=== PATIENT | male | born 1990 | race Caucasian/White ===

== ENCOUNTER 2017-07-27 04:05 | Inpatient (IN) ==
--- NOTE | 2017-07-27 04:14 | Emergency Department Note ---
Disposition Clinical Impression: Suicidal ideation, Suicide attempt DKA (diabetic ketoacidoses) Qualifiers: Diabetes mellitus type: type 1 Diabetes mellitus complication detail: without coma Qualified Code(s): E10.10 - Type 1 diabetes mellitus with ketoacidosis without coma Disposition: Still a Patient Condition: Good Referrals: NONE,PCP [Primary Care Provider] - Forms: ED Satisfaction Letter Time of Disposition: 06:04 Psych HPI - General Chief Complaint: [facility] Psych Stated Complaint: suicidal Time Seen by Provider: 07/27/17 04:07 Source: patient, EMS Mode of arrival: EMS Limitations: no limitations Nursing Notes Reviewed: Yes Vital Signs Reviewed: Yes - History of Present Illness HPI Narrative: Patient is a 27 -year-old male with past medical history of anxiety, depression , bipolar disorder. He currently takes Lexapro and Depakote. He has not missed any doses. He does have a history of a short stay in [facility] behavioral health as a teenager due to self-harm by cutting. Denies any previous suicide attempts. He presents today via EMS due to suicide attempt. He states that he was home all day, was unable to find his . He walked down the street to her brother's house to find her. He found her with another man. He became very upset, went home drink large amount of alcohol, then he took a handgun into the low. He said he was very far into the words to shoot himself in the head. However, he says that he tripped and fell and the gun discharged without hitting him. He then decided to go back to his house and called EMS. Denies any other self-harm or any other ingestions of any drugs or aspirin, Tylenol. Currently denies any chest pain, shortness breath, nausea, vomiting, fevers, diarrhea, abdominal pain. He still has suicidal ideation. Denies any homicidal ideation, visual or auditory hallucinations. - Related Data Home Medications Medication Instructions Recorded Confirmed Escitalopram [Lexapro] 10 mg PO DAILY 05/06/16 11/21/16 Insulin LISPRO [Humalog] 1 unit SQ TID PRN 05/06/16 11/21/16 Divalproex (12 HR) [Depakote (12 500 mg PO BID 11/21/16 11/21/16 HR)] Insulin Glargine,Hum.rec.anlog 60 unit SQ DAILY 11/21/16 11/21/16 [Lantus Solostar] Basagljodie Murdockpen U-100 07/10/17 Lisinopril 07/10/17 Previous Rx's Medication Instructions Recorded Brompheniramine/Pseudoephed/Dm 10 ml PO Q4H PRN #200 ml 07/10/17 [Bromfed Dm Cough Syrup] Allergies Allergy/AdvReac Type Severity Reaction Status Date / Time No Known Allergies Allergy Verified 07/10/17 16:53 All systems ED: reviewed and negative except as stated. Constitutional: Denies: fever Cardiovascular: Denies: chest pain Respiratory: Denies: cough, dyspnea Gastrointestinal: Denies: abdominal pain, nausea, vomiting, diarrhea Genitourinary: Denies: urgency, dysuria Neurological: Denies: weakness, numbness, paresthesias Past Medical History - Past Medical History Attestation: Yes The following information was validated with the patient. Source: patient Medical history: Reports: diabetes, hypertension, other Surgical history: Reports: other Psychiatric history: Reports: bipolar, depression - Social History Smoking Status: Current every day smoker Smokeless Tobacco Status: No Alcohol use: Reports: occasionally Drug use: Reports: none Physical Exam - General Limitations: no limitations General appearance: alert, other (appears upset, eyes swollen from crying. IN no acute distress. ) - Head Head exam: atraumatic, normocephalic, normal inspection - Eye Eye exam: Present: PERRL, EOMI, other (edema of bilateral eyes due to crying) - ENT ENT exam: normal exam, normal oropharynx, mucous membranes moist - Neck Neck exam: Present: normal inspection, full ROM, trachea midline. Absent: tenderness - Chest Chest inspection: Present: normal inspection, symmetric chest wall rise - Respiratory Respiratory exam: Present: normal lung sounds bilaterally - Cardiovascular Cardiovascular exam: Present: regular rate, normal rhythm, normal heart sounds - Abdominal Exam Abdominal exam: Present: soft, Non-Tender. Absent: tenderness, distention, guarding, rebound, rigidity - Extremities Exam Extremities exam: Present: normal inspection, full ROM. Absent: tenderness, pedal edema - Neurological Exam Neurological exam: Present: alert, oriented X3 - Psychiatric Psychiatric exam: Present: depressed, suicidal ideation - Skin Skin exam: Present: warm, dry, intact, normal color Course Course Narrative: Patient vitals were within normal limits on my exam. Physical exam shows a patient who appears depressed, has swollen eyes from crying. Otherwise in no acute distress. Heart regular rate and rhythm, lungs clear to auscultation, abdomen soft and benign, all extremities within normal limits. Due to suicide attempt, we will obtain medical clearance labs and then have behavioral health team evaluate. [place] slip has been signed and is on the chart. 17:49 patient's glucose was in the 500s. He does have a history of diabetes and takes Lantus 50 units at night and then sliding-scale insulin throughout the day. He states that he took his insulin last night prior to bed and then had one sliding-scale dose today around 2 PM. Due to elevated blood glucose level, I ordered a VBG, beta hydroxybutyrate. Patient had elevated ketones in the urine, greater than 2 hydroxybutyrate, pH is 7.28. Patient meets DKA criteria. Anion gap is elevated at 16. We will give the patient normal saline fluid boluses, fluids with potassium, and will start on insulin drip. We will admit to hospitalist for further care. Patient will need to have a behavioral health consult while on the floor. [place] slip remains signed and on the chart. Sitter has been ordered. Vital Signs Temperature 98.5 F 07/27/17 04:07 Pulse Rate 104 07/27/17 04:07 Respiratory Rate 20 07/27/17 04:07 Blood Pressure 138/78 07/27/17 04:07 O2 Sat by Pulse Oximetry 98 07/27/17 04:07 Temperature 98.5 F 07/27/17 04:07 Pulse Rate 104 07/27/17 04:07 Respiratory Rate 20 07/27/17 04:07 Blood Pressure 138/78 07/27/17 04:07 O2 Sat by Pulse Oximetry 98 07/27/17 04:07 Oxygen Delivery Oxygen Delivery Room Air Psych - MDM Narrative Medical decision making narrative: patient's glucose was in the 500s. He does have a history of diabetes and takes Lantus 50 units at night and then sliding-scale insulin throughout the day. He states that he took his insulin last night prior to bed and then had one sliding-scale dose today around 2 PM. Due to elevated blood glucose level, I ordered a VBG, beta hydroxybutyrate. Patient had elevated ketones in the urine, greater than 2 hydroxybutyrate, pH is 7.28. Patient meets DKA criteria. Anion gap is elevated at 16. We will give the patient normal saline fluid boluses, fluids with potassium, and will start on insulin drip. We will admit to hospitalist for further care. Patient will need to have a behavioral health consult while on the floor. [place] slip remains signed and on the chart. Sitter has been ordered. - Lab Data Lab results reviewed: Yes I reviewed the patient's lab results. Result diagrams: 07/27/17 04:26 07/27/17 04:26 Lab Results 07/27/17 07/27/17 07/27/17 Range/Units 04:15 04:15 04:26 WBC 10.0 (4.3-11.1) K/mcL RBC 4.58 (4.19-5.50) M/mcL Hgb 14.2 (12.9-16.9) g/dL Hct 43.4 (37.5-50.1) % MCV 94.8 (83.0-100.0) fL MCH 31.0 (28.0-33.3) pg MCHC 32.7 (31.6-35.5) g/dL RDW 12.1 (11.5-14.5) % Plt Count 215 (140-400) K/mcL MPV 11.2 (9.4-12.4) fL Immature Gran % 0.3 (0-4) % Seg Neutrophils % 82.9 % Lymphocytes % 11.9 % Monocytes % 4.4 % Eosinophils % 0.1 % Basophils % 0.4 % Neutrophils # 8.3 (1.6-8.9) K/mcL Lymphocytes # 1.2 (0.6-4.6) K/mcL Monocytes # 0.4 (0.0-1.3) K/mcL Eosinophils # 0.0 (0.0-0.6) K/mcL Basophils # 0.0 (0.0-0.2) K/mcL VBG pH (7.32-7.42) pH Units VBG pCO2 (41-51) mmHg VBG pO2 (25-50) mmHg VBG HCO3 (21-27) mEq/L Sodium (136-145) mEq/L Potassium (3.5-4.5) mEq/L Chloride (98-109) mEq/L Carbon Dioxide (19-29) mEq/L BUN (8-26) mg/dL Creatinine (0.72-1.25) mg/dL Est GFR ( Amer) (> 60) Est GFR (Non-Af Amer) (> 60) BUN/Creatinine Ratio (6-26) Glucose (70-99) mg/dL Calculated Osmolality (280-300) Calcium (8.6-10.8) mg/dL Beta-Hydroxybutyric Acd (0.02-0.27) mmol/L Urine Color Yellow (Yellow) Urine Clarity Clear (Clear) Urine pH 6.5 (5.0-8.0) pH Units Ur Specific [place] > 1.030 H (1.010-1.025) Urine Protein Negative (Neg-Trace) mg/dL Urine Glucose (UA) >=1000 H (Normal) mg/dL Urine Ketones 15 H (Negative) mg/dL Urine Blood Negative (Negative) Urine Nitrite Negative (Negative) Urine Bilirubin Negative (Negative) Urine Urobilinogen Normal (Normal) mg/dL Ur Leukocyte Esterase Negative (Negative) Salicylates (15.0-30.0) mg/dL Urine Opiates Screen Negative (Kbakyp=945) ng/mL Acetaminophen (10-30) mcg/mL Ur Barbiturates Screen Negative (Uoauij=328) ng/mL Ur Phencyclidine Scrn Negative (Cutoff=25) ng/mL Ur Amphetamines Screen Negative (Gfjgvx=3004) ng/mL U Benzodiazepines Scrn Negative (Kokbne=744) ng/mL Urine Cocaine Screen Negative (Cutoff= 300) ng/mL U Marijuana (THC) Screen Negative (Cutoff = 50) ng/mL Ethyl Alcohol (0-10) mg/dL 07/27/17 07/27/17 07/27/17 Range/Units 04:26 05:11 05:24 WBC (4.3-11.1) K/mcL RBC (4.19-5.50) M/mcL Hgb (12.9-16.9) g/dL Hct (37.5-50.1) % MCV (83.0-100.0) fL MCH (28.0-33.3) pg MCHC (31.6-35.5) g/dL RDW (11.5-14.5) % Plt Count (140-400) K/mcL MPV (9.4-12.4) fL Immature Gran % (0-4) % Seg Neutrophils % % Lymphocytes % % Monocytes % % Eosinophils % % Basophils % % Neutrophils # (1.6-8.9) K/mcL Lymphocytes # (0.6-4.6) K/mcL Monocytes # (0.0-1.3) K/mcL Eosinophils # (0.0-0.6) K/mcL Basophils # (0.0-0.2) K/mcL VBG pH 7.28 L (7.32-7.42) pH Units VBG pCO2 45 (41-51) mmHg VBG pO2 52 H (25-50) mmHg VBG HCO3 21 (21-27) mEq/L Sodium 136 (136-145) mEq/L Potassium 4.3 (3.5-4.5) mEq/L Chloride 102 (98-109) mEq/L Carbon Dioxide 18 L (19-29) mEq/L BUN 13 (8-26) mg/dL Creatinine 1.08 (0.72-1.25) mg/dL Est GFR ( Amer) > 60 (> 60) Est GFR (Non-Af Amer) > 60 (> 60) BUN/Creatinine Ratio 12 (6-26) Glucose 529 H* (70-99) mg/dL Calculated Osmolality 306 H (280-300) Calcium 8.5 L (8.6-10.8) mg/dL Beta-Hydroxybutyric Acd > 2.00 H (0.02-0.27) mmol/L Urine Color (Yellow) Urine Clarity (Clear) Urine pH (5.0-8.0) pH Units Ur Specific [place] (1.010-1.025) Urine Protein (Neg-Trace) mg/dL Urine Glucose (UA) (Normal) mg/dL Urine Ketones (Negative) mg/dL Urine Blood (Negative) Urine Nitrite (Negative) Urine Bilirubin (Negative) Urine Urobilinogen (Normal) mg/dL Ur Leukocyte Esterase (Negative) Salicylates < 5.0 L (15.0-30.0) mg/dL Urine Opiates Screen (Mfuyqh=716) ng/mL Acetaminophen < 1.0 L (10-30) mcg/mL Ur Barbiturates Screen (Ukcqgn=821) ng/mL Ur Phencyclidine Scrn (Cutoff=25) ng/mL Ur Amphetamines Screen (Sxmqhq=3987) ng/mL U Benzodiazepines Scrn (Piknhu=395) ng/mL Urine Cocaine Screen (Cutoff= 300) ng/mL U Marijuana (THC) Screen (Cutoff = 50) ng/mL Ethyl Alcohol 130 H (0-10) mg/dL Psychiatric Medical Clearance - Medical Clearance Checklist Medical History: Suicidal ideation (Acute) Suicide attempt (Acute) Abscess of skin or subcutaneous tissue (Inactive) Bronchitis (Inactive) Bronchitis (Inactive) Bronchitis (Inactive) Chest wall pain (Inactive) Elevated glucose (Inactive) Encounter for medication refill (Inactive) Ketonuria (Inactive) Lumbar strain (Inactive) Pleural effusion (Inactive) Upper respiratory infection (Inactive) Urinary frequency (Inactive) No Social History Section defined Current Vitals: Last Vital Signs Temp 98.5 F 07/27/17 04:07 Pulse 104 07/27/17 04:07 Resp 20 07/27/17 04:07 BP 138/78 07/27/17 04:07 Pulse Ox 98 07/27/17 04:07 Psychiatric Lab Panel: Drug Levels and Toxicity 07/27/17 07/27/17 04:15 04:26 Urine Opiates Screen Negative Acetaminophen < 1.0 L Ur Barbiturates Screen Negative Ur Phencyclidine Scrn Negative Ur Amphetamines Screen Negative U Benzodiazepines Scrn Negative Urine Cocaine Screen Negative U Marijuana (THC) Screen Negative Ethyl Alcohol 130 H Abnormal Labs: Abnormal lab results VBG pH 7.28 pH Units (7.32-7.42) L 07/27/17 05:24 VBG pO2 52 mmHg (25-50) H 07/27/17 05:24 Carbon Dioxide 18 mEq/L (19-29) L 07/27/17 04:26 Glucose 529 mg/dL (70-99) H* 07/27/17 04:26 Calculated Osmolality 306 (280-300) H 07/27/17 04:26 Calcium 8.5 mg/dL (8.6-10.8) L 07/27/17 04:26 Beta-Hydroxybutyric Acd > 2.00 mmol/L (0.02-0.27) H 07/27/17 05:11 Ur Specific [place] > 1.030 (1.010-1.025) H 07/27/17 04:15 Urine Glucose (UA) >=1000 mg/dL (Normal) H 07/27/17 04:15 Urine Ketones 15 mg/dL (Negative) H 07/27/17 04:15 Salicylates < 5.0 mg/dL (15.0-30.0) L 07/27/17 04:26 Acetaminophen < 1.0 mcg/mL (10-30) L 07/27/17 04:26 Ethyl Alcohol 130 mg/dL (0-10) H 07/27/17 04:26 Statement of Medical Clearance: I have evaluated the patient, reviewed diagnostic information, and certify that the patient's medical condition is sufficiently stable that transfer to the psychiatric unit does not pose a significant risk of deterioration. S.BShaunna - Matthew Situation: Demographics, MOA Background: Presenting Complaint, Relevant PMH, Meds, & Allergies Assessment: Vital Signs, Course and respsone to treatment, Exam Concerns, Patient/Family Expectation, Pertinant Lab Results, Outstanding Labs Recommendation: Barrier(s) to disposition, Recommendation based on pending studies, treatments, or consults SDiBShaunna Report Given to: Dr. Shena Castro Repor Time: 06:04 Attestation Statement - Attestation Attestation: I examined this patient and my medical decision-making was reviewed with the Resident Physician. I agree with the documented findings, disposition and treatment plan as described except to the extent set forth below. Patient to ED suicidal thoughts. Patient was planning to go in the low and shoot himself. He is a type I diabetic. On exam he is tearful. Heart regular lungs clear. Plan. Patient's blood sugars over 500. Anion gap 16 and acidotic at 7.2. Patient is in DKA. Fluids and insulin drip. We will admit.
[2017-07-27 04:35] LABS: Basophils % 0.4 %; Eosinophils % 0.1 %; Hematocrit 43.4 % (37.5-50.1); Hemoglobin 14.2 g/dL (12.9-16.9); Immature Granulocytes % 0.3 % (0-4); Lymphocytes # 1.2 K/mcL (0.6-4.6); Lymphocytes % 11.9 %; Mean Corpuscular HGB Conc 32.7 g/dL (31.6-35.5); Mean Corpuscular Volume 94.8 fL (83.0-100.0); Mean Platelet Volume 11.2 fL (9.4-12.4); Monocytes # 0.4 K/mcL (0.0-1.3); Monocytes % 4.4 %; Neutrophils # 8.3 K/mcL (1.6-8.9); Platelet Count 215 K/mcL (140-400); Red Blood Count 4.58 M/mcL (4.19-5.50); Red Cell Distribution Width 12.1 % (11.5-14.5); Segmented Neutrophils % 82.9 %
[2017-07-27 04:39] LABS: Bilirubin,Urine Negative (Negative); Blood,Urine Negative (Negative); Clarity,Urine Clear (Clear); Color,Urine Yellow (Yellow); Glucose,Urine (UA) >=1000 mg/dL (Normal); Ketones,Urine 15 mg/dL (Negative); Leukocyte Esterase,Urine Negative (Negative); Nitrite,Urine Negative (Negative); PH,Urine 6.5 pH Units (5.0-8.0); Protein,Urine Negative (Neg-Trace); Specific Gravity,Urine > 1.030 (1.010-1.025); Urobilinogen,Urine Normal (Normal)
[2017-07-27 04:41] LABS: Amphetamine Screen,Urine Negative ng/mL (Cutoff=1000); Barbiturate Screen,Urine Negative ng/mL (Cutoff=200); Benzodiazepines Screen,Urine Negative ng/mL (Cutoff=200); Cannabinoid Screen,Urine Negative ng/mL (Cutoff = 50); Cocaine Screen,Urine Negative ng/mL (Cutoff= 300); Opiate Screen,Urine Negative ng/mL (Cutoff=300); Phencyclidine Screen,Urine Negative ng/mL (Cutoff=25)
[2017-07-27 04:49] LABS: BUN/Creatinine Ratio 12 (6-26); Blood Urea Nitrogen 13 mg/dL (8-26); Calcium 8.5 mg/dL (8.6-10.8); Carbon Dioxide 18 mEq/L (19-29); Chloride 102 mEq/L (98-109); Ethanol 130 mg/dL (0-10); Osmolality,Calculated 306 (280-300); Potassium 4.3 mEq/L (3.5-4.5); Sodium 136 mEq/L (136-145); eGFR For African Americans > 60 (> 60); eGFR For Non-African Americans > 60 (> 60)
[2017-07-27 04:50] LABS: Acetaminophen < 1.0 mcg/mL (10-30); Salicylate < 5.0 mg/dL (15.0-30.0)
[2017-07-27 04:52] LABS: Glucose 529 mg/dL (70-99)
[2017-07-27 05:27] LABS: VBG HCO3 21 mEq/L (21-27); VBG PCO2 45 mmHg (41-51); VBG PH 7.28 pH Units (7.32-7.42); VBG PO2 52 mmHg (25-50)
[2017-07-27] MEDS ORDERED: 0.9 % Sodium Chloride 1,000 ML IVC SCH (05:30)
[2017-07-27] MEDS ORDERED: 0.45 % Sodium Chloride w/KCl 20 MEQ/1,000 ML MLS IVC SCH (05:30)
[2017-07-27] MEDS ORDERED: Insulin Human Regular 100 UNIT in 0.9 % Sodium Chloride 100 ML IVC SCH (05:30)
[2017-07-27] MEDS ORDERED: Insulin DETEMIR 100 UNIT/ML X5UNITS SQ ONE (06:15)
[2017-07-27] MEDS ORDERED: Naloxone 0.4 MG/ML INJ IVP PRN (06:16)
--- NOTE | 2017-07-27 06:23 | Internal Med History&Physical ---
Date of Encounter: 07/27/17 Time of Encounter: 06:18 Assessment and Plan (1) Suicide attempt Current visit: Yes Status: Acute psych eval sitter, suicide precautions (2) Bipolar 1 disorder, depressed Current visit: Yes Status: Acute psych eval sitter, suicide precautions (3) Depression Current visit: Yes Status: Acute psych eval sitter, suicide precautions Qualifiers: Depression Type: reactive depression Qualified Code(s): F32.9 - Major depressive disorder, single episode, unspecified (4) DKA (diabetic ketoacidoses) Current visit: Yes Status: Acute mild DKA insulin gtt in the ED IVF anticipate transition to ISS and PO intake in the morning if all goes well Qualifiers: Diabetes mellitus type: type 1 Diabetes mellitus complication detail: without coma Qualified Code(s): E10.10 - Type 1 diabetes mellitus with ketoacidosis without coma Internal Medicine - H&P: HPI Chief complaint: Suicidal attempt History of present illness: Mr. Avila is a 27 year old male who self committed himself after a suicide attempt. He found out that his had an affair and started to drink heavily last evening. He decided to commit suicide by taking his gun with him into the low but somehow, tripped and misfired a round. Thankfully, there was only 1 round in the chamber and he ran out of ammunition. He later came around and decided to self admit to the ED for help. He has a hx of depression, bipolar disorder since childhood. His mental health has been managed by PCP. He described himself as a "cutter" when he was a high school and his mother reported that he had to be committed to [facility] mental health then. In terms of his medical issues, he had been a DMI since 12 years old. He uses 60 lantus qHS and ISS during the day. With the emotional turmoil he developed last evening, he was not able to be compliant with his insulin, causing elevated blood sugars Past Med Surg Social Fam HX - Past Medical History Medical history: diabetes, hypertension, other Psychiatric history: bipolar, depression - Past Surgical History Surgical History: other - Social History Smoking Status: Current every day smoker Smokeless Tobacco Status: No Alcohol use: occasionally Drug use: none Internal Medicine - H&P: Meds Escitalopram [Lexapro] 10 mg PO DAILY 09/26/16 [History] Insulin LISPRO [Humalog] 1 unit SQ TID PRN 05/06/16 [History] Divalproex (12 HR) [Depakote (12 HR)] 500 mg PO BID 11/21/16 [History] Insulin Glargine,Hum.rec.anlog [Lantus Solostar] 60 unit SQ DAILY 11/21/16 [ History] Basaglar Kwikpen U-100 07/10/17 [History] Brompheniramine/Pseudoephed/Dm [Bromfed Dm Cough Syrup] 10 ml PO Q4H PRN #200 ml 07/10/17 [Rx] Lisinopril 07/10/17 [History] 3 Allergy/AdvReac Type Severity Reaction Status Date / Time No Known Allergies Allergy Verified 07/10/17 16:53 All Systems PM: A 10-system review of systems was performed and is negative for pertinent findings except as documented above in the HPI. Review of systems: ROS 14 point review of systems reviewed as best as possible given presentation. Pertinent positive or negative as per HPI or otherwise reviewed as negative - Constitutional Vitals: Temp Pulse Resp BP Pulse Ox 98.5 F 104 20 138/78 98 07/27/17 04:07 07/27/17 04:07 07/27/17 04:07 07/27/17 04:07 07/27/17 04:07 Exam: General - AAO x 3 Psych - Appears down Eyes - JOSEPH. Eye lids intact. No scleral icterus Heart - Sinus. RRR. S1 and S2 present. No added HS/murmurs appreciated. No elevated JVD appreciated. Lung - Adequate air entry b/l, No crackles/wheezes appreciated GI - Soft, non-tender. No hepatosplenomegaly/ascites. BS+ - No CVA/suprapubic tenderness or palpable bladder distension Skin - Tattoos present. No rash/petechiae/ecchymosis. Warm extremities MSK - Joints with normal ROM. No joint swellings Internal Med - H&P Results - Labs CBC & Chem 7: 07/27/17 04:26 07/27/17 04:26
[2017-07-27] MEDS ORDERED: *HR* Dextrose 50 % in Water (Syg) 50 ML SYRINGE IVP PRN (06:29)
[2017-07-27] MEDS ORDERED: D5% in Water 1,000 ML IVC PRN (06:29)
[2017-07-27] MEDS ORDERED: Dextrose Gel 15 GM PO PRN ×2 (06:29)
[2017-07-27] MEDS ORDERED: Insulin LISPRO 300 UNITS/3 ML VIAL SQ SCH ×3 (07:30→21:00)
[2017-07-27] MEDS: Divalproex (12 HR) 500 MG TABLET PO SCH ×2 (07:48→20:03)
[2017-07-27 09:22] LABS: BUN/Creatinine Ratio 12 (6-26); Blood Urea Nitrogen 10 mg/dL (8-26); Calcium 7.9 mg/dL (8.6-10.8); Carbon Dioxide 19 mEq/L (19-29); Chloride 107 mEq/L (98-109); Glucose 301 mg/dL (70-99); Osmolality,Calculated 296 (280-300); Sodium 138 mEq/L (136-145); eGFR For African Americans > 60 (> 60); eGFR For Non-African Americans > 60 (> 60)
[2017-07-27 09:26] LABS: Potassium 3.2 mEq/L (3.5-4.5)
--- NOTE | 2017-07-27 10:45 | Event Note ---
Date of Encounter: 07/27/17 Time of Encounter: 10:35 Patient is a 27y/o male with history of Type I DM admitted s/p suicide attempt and DKA. Patient seen and examined at bedside. Resting in bed and denies any discomfort. Denies any thoughts of hurting himself and is remorseful of his actions. DKA resolved. Restarted home dose of insulin along with sliding scare insulin algorithm Monitor FS and BG ADA diet continue bedside sitter awaiting psychiatry evaluation pt medically stable to be transferred to psych service if inpatient psych evaluation is needed
[2017-07-27] MEDS: Insulin LISPRO 300 UNITS/3 ML VIAL SQ SCH ×2 (11:20→16:36)
--- NOTE | 2017-07-27 12:46 | Consult Note ---
Date of Encounter: 07/27/17 Time of Encounter: 12:41 Assessment & Recommendation (1) Bipolar 1 disorder, depressed Current visit: Yes Status: Acute Assessment & Recommendation: Continue Lexapro and Depakote for now. Recommend inpatient psychiatry admission once DKA resolved and client medically stable. He is aware this is the recommendation and is agreeable. Maintain sitter. Will need to ensure guns removed from home and no further access to weapons. Sees PCP for meds but needs referred to a counselor and outpatient psychiatrist. History of Present Illness Requesting Physician: Beata Morales MD Reason for consult: suicidal ideation History of present illness: Mr. Avila is a 27 year old male with past diagnoses of depression, anxiety, and bipolar disorder. Had been doing well on regimen of Lexapro and Depakote but found out was having an affair. Took a gun into the low behind his house with plan to shoot himself. Claims the one round he had fired accidentally so he decided to seek help instead. Was drinking heavily and not taking insulin for his Diabetes so at the time of presentation he was in DKA. Being managed medically at this time. Today client reports he is feeling better. SI has lessened but still present. Discussed admission to inpatient psych and he is agreeable. One prior hospitalization at [facility] as a minor. Saw a psychiatrist for a year and a half following this admission but PCP manages meds now. Denies any other health problems except HTN. Denies substance abuse issues. Tox screen negative. CC: Beata Morales MD Past Med Surg Social Fam HX - Past Medical History Medical history: diabetes, hypertension, other - Past Psychiatric History Psychiatric history: Reports: anxiety, bipolar, depression, previous psychiatric hospitalization Family psychiatric history: Unknown Family History of Suicide: Unknown - Past Surgical History Surgical History: other - Social History Smoking Status: Current every day smoker Smokeless Tobacco Status: No Alcohol use: occasionally Drug use: none Medications & Allergies Escitalopram [Lexapro] 10 mg PO DAILY 05/06/16 [History] Insulin LISPRO [Humalog] 1 unit SQ TID PRN 05/06/16 [History] Divalproex (12 HR) [Depakote (12 HR)] 500 mg PO BID 11/21/16 [History] Insulin Glargine,Hum.rec.anlog [Lantus Solostar] 60 unit SQ DAILY 11/21/16 [ History] Consueloagljodie Elizabeth U-100 07/10/17 [History] Brompheniramine/Pseudoephed/Dm [Bromfed Dm Cough Syrup] 10 ml PO Q4H PRN #200 ml 07/10/17 [Rx] Lisinopril 07/10/17 [History] 3 Allergy/AdvReac Type Severity Reaction Status Date / Time No Known Allergies Allergy Verified 07/10/17 16:53 Review of Systems Constitutional: Denies: fever, chills, weakness, weight change Eyes: Denies: eye pain, vision change Ears, Nose, Throat: Denies: ear pain, throat pain, dental pain, hearing loss, congestion Cardiovascular: Denies: chest pain, palpitations, dyspnea on exertion Respiratory: Denies: cough, dyspnea, wheezes Gastrointestinal: Denies: abdominal pain, nausea, vomiting, diarrhea, constipation Genitourinary male: Denies: urgency, dysuria, frequency, genital lesions Genitourinary female: Denies: urgency, dysuria, frequency, abnormal menses, dyspareunia Musculoskeletal: Denies: joint swelling, joint pain Integumentary: Denies: rash, lesions, pruritus Neurological: Denies: headache, weakness, numbness, memory loss Psychiatric: Reports: depression, anxiety, suicidal ideation Endocrine: Reports: other Mental Status Exam Patient orientation: Yes Person, Yes Time, Yes Place Level of alertness: Alert Patient appearance: Disheveled Behavior: calm, cooperative Psychomotor activity: Normal Eye contact: Maintains Eye Contact Mood description: Depressed Affect description: congruent with mood Speech pattern: Normal rate, Normal rhythm, Normal tone Speech volume: Normal Thought process: Linear Thought content: Yes Suicidal ideation, No Homicidal ideation, No Overt delusions Perceptual disturbances: No Auditory hallucinations, No Visual hallucinations Attention span: Capable of Focused Attention Memory description: Grossly Intact Patient reliability: Reliable Historian Intelligence estimate: Average Judgment: Limited Insight: Partial Results - Vital Signs Vital signs: Temp Pulse Resp BP Pulse Ox 98.0 F 101 20 127/76 98 07/27/17 11:17 07/27/17 11:20 07/27/17 11:17 07/27/17 11:17 07/27/17 11:17 - Labs Labs: Laboratory Last Values WBC 10.0 K/mcL (4.3-11.1) 07/27/17 04:26 RBC 4.58 M/mcL (4.19-5.50) 07/27/17 04:26 Hgb 14.2 g/dL (12.9-16.9) 07/27/17 04:26 Hct 43.4 % (37.5-50.1) 07/27/17 04:26 MCV 94.8 fL (83.0-100.0) 07/27/17 04:26 MCH 31.0 pg (28.0-33.3) 07/27/17 04:26 MCHC 32.7 g/dL (31.6-35.5) 07/27/17 04:26 RDW 12.1 % (11.5-14.5) 07/27/17 04:26 Plt Count 215 K/mcL (140-400) 07/27/17 04:26 MPV 11.2 fL (9.4-12.4) 07/27/17 04:26 Immature Gran % 0.3 % (0-4) 07/27/17 04:26 Seg Neutrophils % 82.9 % 07/27/17 04:26 Lymphocytes % 11.9 % 07/27/17 04:26 Monocytes % 4.4 % 07/27/17 04:26 Eosinophils % 0.1 % 07/27/17 04:26 Basophils % 0.4 % 07/27/17 04:26 Neutrophils # 8.3 K/mcL (1.6-8.9) 07/27/17 04:26 Lymphocytes # 1.2 K/mcL (0.6-4.6) 07/27/17 04:26 Monocytes # 0.4 K/mcL (0.0-1.3) 07/27/17 04:26 Eosinophils # 0.0 K/mcL (0.0-0.6) 07/27/17 04:26 Basophils # 0.0 K/mcL (0.0-0.2) 07/27/17 04:26 VBG pH 7.28 pH Units (7.32-7.42) L 07/27/17 05:24 VBG pCO2 45 mmHg (41-51) 07/27/17 05:24 VBG pO2 52 mmHg (25-50) H 07/27/17 05:24 VBG HCO3 21 mEq/L (21-27) 07/27/17 05:24 Sodium 138 mEq/L (136-145) 07/27/17 09:03 Potassium 3.2 mEq/L (3.5-4.5) L D 07/27/17 09:03 Chloride 107 mEq/L (98-109) 07/27/17 09:03 Carbon Dioxide 19 mEq/L (19-29) 07/27/17 09:03 BUN 10 mg/dL (8-26) 07/27/17 09:03 Creatinine 0.82 mg/dL (0.72-1.25) 07/27/17 09:03 Est GFR ( Amer) > 60 (> 60) 07/27/17 09:03 Est GFR (Non-Af Amer) > 60 (> 60) 07/27/17 09:03 BUN/Creatinine Ratio 12 (6-26) 07/27/17 09:03 Glucose 301 mg/dL (70-99) H 07/27/17 09:03 POC Glucose 358 (58-89) H 07/27/17 06:46 Calculated Osmolality 296 (280-300) 07/27/17 09:03 Calcium 7.9 mg/dL (8.6-10.8) L 07/27/17 09:03 Beta-Hydroxybutyric Acd > 2.00 mmol/L (0.02-0.27) H 07/27/17 05:11 Urine Color Yellow (Yellow) 07/27/17 04:15 Urine Clarity Clear (Clear) 07/27/17 04:15 Urine pH 6.5 pH Units (5.0-8.0) 07/27/17 04:15 Ur Specific [place] > 1.030 (1.010-1.025) H 07/27/17 04:15 Urine Protein Negative mg/dL (Neg-Trace) 07/27/17 04:15 Urine Glucose (UA) >=1000 mg/dL (Normal) H 07/27/17 04:15 Urine Ketones 15 mg/dL (Negative) H 07/27/17 04:15 Urine Blood Negative (Negative) 07/27/17 04:15 Urine Nitrite Negative (Negative) 07/27/17 04:15 Urine Bilirubin Negative (Negative) 07/27/17 04:15 Urine Urobilinogen Normal mg/dL (Normal) 07/27/17 04:15 Ur Leukocyte Esterase Negative (Negative) 07/27/17 04:15 Salicylates < 5.0 mg/dL (15.0-30.0) L 07/27/17 04:26 Urine Opiates Screen Negative ng/mL (Dizcbi=724) 07/27/17 04:15 Acetaminophen < 1.0 mcg/mL (10-30) L 07/27/17 04:26 Ur Barbiturates Screen Negative ng/mL (Puuzto=464) 07/27/17 04:15 Ur Phencyclidine Scrn Negative ng/mL (Cutoff=25) 07/27/17 04:15 Ur Amphetamines Screen Negative ng/mL (Djgzfd=9799) 07/27/17 04:15 U Benzodiazepines Scrn Negative ng/mL (Awajcl=102) 07/27/17 04:15 Urine Cocaine Screen Negative ng/mL (Cutoff= 300) 07/27/17 04:15 U Marijuana (THC) Screen Negative ng/mL (Cutoff = 50) 07/27/17 04:15 Ethyl Alcohol 130 mg/dL (0-10) H 07/27/17 04:26 Consult Discharge Plan - Plan Referrals: Frederic Peña [facility] [Advanced Practice Nurse] - (WEB REQUEST SENT 07/27/17. OFFICE WILL PT WITH FOLLOW UP APPOINTMENT.)
[2017-07-27] MEDS: *HR* Dextrose 50 % in Water (Syg) 50 ML SYRINGE IVP PRN ×4 (12:59→21:34)
[2017-07-28 05:58] LABS: Basophils % 0.4 %; Eosinophils # 0.1 K/mcL (0.0-0.6); Eosinophils % 0.6 %; Hematocrit 37.3 % (37.5-50.1); Immature Granulocytes % 0.3 % (0-4); Lymphocytes % 37.5 %; Mean Corpuscular Hemoglobin 31.3 pg (28.0-33.3); Mean Corpuscular Volume 94.9 fL (83.0-100.0); Mean Platelet Volume 11.3 fL (9.4-12.4); Monocytes # 0.5 K/mcL (0.0-1.3); Monocytes % 6.2 %; Neutrophils # 4.3 K/mcL (1.6-8.9); Platelet Count 182 K/mcL (140-400); Red Blood Count 3.93 M/mcL (4.19-5.50); Red Cell Distribution Width 12.5 % (11.5-14.5)
[2017-07-28] MEDS ORDERED: *HR* Enoxaparin 30 MG/0.3 ML SYRINGE SQ SCH (06:00)
[2017-07-28 06:17] LABS: Hemoglobin 12.3 g/dL (12.9-16.9)
[2017-07-28 06:18] LABS: BUN/Creatinine Ratio 13 (6-26); Blood Urea Nitrogen 9 mg/dL (8-26); Calcium 7.9 mg/dL (8.6-10.8); Carbon Dioxide 22 mEq/L (19-29); Chloride 110 mEq/L (98-109); Glucose 238 mg/dL (70-99); Magnesium 1.8 mg/dL (1.6-2.6); Osmolality,Calculated 294 (280-300); Phosphorous 2.8 mg/dL (2.3-4.7); Potassium 4.1 mEq/L (3.5-4.5); Sodium 139 mEq/L (136-145); eGFR For African Americans > 60 (> 60); eGFR For Non-African Americans > 60 (> 60)
[2017-07-28] MEDS: Divalproex (12 HR) 500 MG TABLET PO SCH (07:56)
[2017-07-28] MEDS: Insulin LISPRO 300 UNITS/3 ML VIAL SQ SCH ×2 (08:00→12:17)
[2017-07-28] MEDS ORDERED: Insulin DETEMIR 100 UNIT/ML X5UNITS SQ SCH ×2 (09:00)
--- NOTE | 2017-07-28 09:40 | Transfer Summary ---
Date of Encounter: 07/28/17 Time of Encounter: 09:36 Transfer Discharge Sum: Diag - Discharge Diagnosis (1) Suicidal ideation Status: Acute (2) Suicide attempt Status: Acute (3) DKA (diabetic ketoacidoses) Status: Resolved (4) Bipolar 1 disorder, depressed Status: Acute (5) Depression Status: Acute Transfer Discharge Sum: Med - Medications Active and Home Medications: Home Medications Insulin LISPRO [Humalog] 0 unit SQ TID PRN 05/06/16 [History Confirmed 07/27/17] Insulin Glargine,Hum.rec.anlog [Lantus Solostar] 60 unit SQ DAILY 11/21/16 [ History Confirmed 07/27/17] Lisinopril [Zestril] 5 mg PO DAILY 07/10/17 [History Confirmed 07/27/17] Divalproex (12 HR) [Depakote (12 HR)] 250 mg PO BID 07/27/17 [History Confirmed 07/27/17] Escitalopram [Lexapro] 20 mg PO DAILY 07/27/17 [History Confirmed 07/27/17] Active Medications Dextrose/Water (Dextrose 50% (Syg)) 25 ml IVP Q15MIN PRN PRN Reason: Hypoglycemia Stop: 01/26/18 05:31 Last Admin: 07/27/17 21:34 Dose: 25 ml Dextrose/Water (Dextrose 50% (Syg)) 25 ml IVP AD PRN PRN Reason: Hypoglycemia Stop: 01/26/18 06:30 Divalproex Sodium (Depakote (12 Hr)) 500 mg PO BID [facility] Stop: 01/26/18 09:01 Last Admin: 07/28/17 07:56 Dose: 500 mg Enoxaparin Sodium (Lovenox) 30 mg SQ 0600 [facility] PRN Reason: Protocol Stop: 01/27/18 06:01 Last Admin: 07/28/17 06:21 Dose: 30 mg Escitalopram Oxalate (Lexapro) 10 mg PO DAILY [facility] Stop: 01/26/18 09:01 Last Admin: 07/28/17 07:57 Dose: 10 mg Glucagon (Glucagen) 1 mg IM ONCE PRN PRN Reason: Hypoglycemia Stop: 01/26/18 06:30 Glucose (Gluctose) 15 gm PO ONCE PRN PRN Reason: Hypoglycemia Stop: 01/26/18 06:30 Glucose (Gluctose) 30 gm PO ONCE PRN PRN Reason: Hypoglycemia Stop: 01/26/18 06:30 Dextrose (Dextrose 5%) 1,000 mls @ 100 mls/hr IVC .Q10H PRN PRN Reason: HYPOGLYCEMIA Stop: 01/26/18 06:30 Insulin Detemir (Levemir) 30 unit SQ DAILY [facility] Stop: 01/27/18 09:01 Last Admin: 07/28/17 09:08 Dose: 30 unit Insulin Human Lispro (Humalog) 0 units SQ HS [facility] PRN Reason: Protocol Stop: 01/26/18 21:01 Last Admin: 07/27/17 20:04 Dose: Not Given Insulin Human Lispro (Humalog) 0 units SQ TIDAC [facility] PRN Reason: Protocol Stop: 01/26/18 07:31 Last Admin: 07/28/17 08:00 Dose: 10 units Lisinopril (Zestril) 5 mg PO QAM [facility] Stop: 01/26/18 09:01 Last Admin: 07/28/17 07:56 Dose: 5 mg Naloxone HCl (Narcan) 0.4 mg IVP Q2MIN PRN PRN Reason: Opioid Reversal Stop: 01/26/18 06:17 Transfer Discharge Sum: Data Procedures and tests throughout hospitalization: Pending Orders 07/27/17 06:29 D5% in Water [Dextrose 5%] 1,000 ml IVC 100 mls/hr Dextrose 50 % in Water (Syg) [Dextrose 50% (Syg)] 25 ml IVP AD PRN Dextrose Gel [Gluctose] 15 gm PO ONCE PRN Dextrose Gel [Gluctose] 30 gm PO ONCE PRN Glucagon, Human Recombinant [GlucaGen] 1 mg IM ONCE PRN 07/27/17 06:31 Hypoglycemia Treatment Orders [RC] .once Notify provider [RC] once 07/27/17 10:43 Insulin LISPRO [HumaLOG] See Protocol SQ TIDAC 07/27/17 21:00 Insulin LISPRO [HumaLOG] See Protocol SQ HS 07/27/17 Breakfast Diabetic Diet 07/28/17 09:00 Insulin DETEMIR [Levemir] 30 unit SQ DAILY Transfer Discharge Sum: Prov Date of admission: 07/27/17 06:16 Primary care physician: PCP NONE Discharging clinician: Beata Morales Anticipated date of transfer: 07/28/17 Receiving physician/facility: [facility] Transfer Discharge Sum: A/P - Plan Functional capacity at transfer: independent ambulation Overall status at transfer: patient is back to baseline Disposition: Transfer Other Transfer Discharge Sum: Hosp Hospital course: Mr. Avila is a 27 year old male with PMH Of type I DM admitted s/p suicide attempt and was found to have DKA. Pt was started on IV fluids, Insulin therapy with resolution of his DKA. He reported of trying to shoot himself however accidentally misfired a round and after that he was out of ammunition, and he decided to seek for help. He was evaluated by psychiatry, and inpatient psych treatment is recommended. Pt is medically stable for transfer to [facility] inpatient psych unit. transfer pending bed availability at the inpatient psych unit. Pt in agreement with the transfer plan. - Time Spent with Patient Total time spent providing and/or coordinating transfer services: Less than 30 minutes Transfer Discharge Sum: Exam - Constitutional Vitals: Vital Signs Temp Pulse Resp BP Pulse Ox 07/28/17 07:55 76 07/28/17 07:48 98.2 F 66 16 127/68 95 07/28/17 04:06 79 07/28/17 03:59 98.4 F 80 16 120/71 95 07/27/17 23:51 80 07/27/17 23:01 98.3 F 89 16 118/66 96 07/27/17 20:05 85 07/27/17 18:58 98.2 F 86 17 111/65 97 07/27/17 16:53 91 07/27/17 15:13 98.0 F 88 18 124/63 99 07/27/17 11:20 101 07/27/17 11:17 98.0 F 104 20 127/76 98 Intake and Output 07/27/17 07/28/17 07/28/17 23:59 07:59 15:59 Intake Total 500 / 500 120 / 120 Output Total 1000 / 1000 950 / 950 Balance -500 / -500 -950 / -950 120 / 120 Intake: Oral 500 / 500 120 / 120 Output: Urine 1000 / 1000 950 / 950 Other: Meal Breakfast Percent of Meal Consumed 95% # Voids 1 Blood Glucose* 77 254 General appearance: no acute distress - Head Head exam: Present: atraumatic, normocephalic - Eye Eye exam: Present: normal appearance, conjuntiva pink, sclera anicteric - Respiratory Respiratory exam: Present: CTAB. Absent: respiratory distress, wheezes - Cardiovascular Cardiovascular exam: Present: RRR, +S1, +S2. Absent: diastolic murmur, systolic murmur - GI/Abdominal GI/Abdominal exam: Present: normal bowel sounds, soft. Absent: distended, tenderness - Extremities Exam Extremities exam: Absent: calf tenderness, pedal edema, tenderness - Neurological Exam Neurological exam: Present: oriented X3
[2017-07-28 12:13] VITALS: BP 117/75
== END 2017-07-28 14:00 | disposition other institution (70) | DRG 420 ==
LOC: 2NNU 04:05 → EMEROO 04:05 → SUATTDRO 06:16 → 2NNU 06:49
PROVIDERS: ADMIT Family Medicine; ATTEND Internal Medicine

== ENCOUNTER 2017-07-28 14:25 | Inpatient (IN) ==
[2017-07-28] MEDS ORDERED: Haloperidol Lactate 5 MG/ML VIAL IM PRN (15:34)
[2017-07-28] MEDS ORDERED: Mag Hydrox/Al Hydrox/Simeth 30 ML UDC PO PRN (15:34)
[2017-07-28] MEDS ORDERED: traZODone 50 MG TABLET PO PRN (15:34)
[2017-07-28] MEDS ORDERED: Acetaminophen 325 MG TABLET PO PRN (15:34)
[2017-07-28] MEDS ORDERED: MOM Conc 10 ML UD.LIQ PO PRN (15:34)
[2017-07-28] MEDS ORDERED: *HR* LORazepam 2 MG/ML VIAL IM PRN (15:34)
[2017-07-28] MEDS ORDERED: hydrOXYzine pamoate 25 MG CAPSULE PO PRN (15:34)
[2017-07-28] MEDS ORDERED: D5% in Water 1,000 ML IVC PRN (16:00)
[2017-07-28] MEDS ORDERED: *HR* Dextrose 50 % in Water (Syg) 50 ML SYRINGE IVP PRN (16:00)
[2017-07-28] MEDS ORDERED: Dextrose Gel 15 GM PO PRN ×2 (16:00)
[2017-07-28] MEDS ORDERED: Nicotine 2 MG GUM BC PRN (16:02)
[2017-07-28] MEDS: Insulin LISPRO 300 UNITS/3 ML VIAL SQ SCH (16:52)
[2017-07-28] MEDS ORDERED: Insulin LISPRO 300 UNITS/3 ML VIAL SQ SCH (21:00)
[2017-07-28] MEDS: Divalproex (12 HR) 250 MG TABLET PO SCH (21:23)
[2017-07-29] MEDS: Divalproex (12 HR) 250 MG TABLET PO SCH (08:47)
[2017-07-29] MEDS: Insulin LISPRO 300 UNITS/3 ML VIAL SQ SCH ×3 (08:47→16:06)
[2017-07-29] MEDS ORDERED: Insulin DETEMIR 100 UNIT/ML X5UNITS SQ SCH (09:00)
--- NOTE | 2017-07-29 11:23 | Psychiatry History & Physical ---
Date of Encounter: 07/29/17 Time of Encounter: 10:50 History of Present Illness Patient Stated Chief Complaint: "I drank too much." Medicare Admission Attestation: For traditional Medicare patients the provided hospital inpatient services are reasonable and necessary and in the case of services not specified as inpatient -only under 42 CFR 419.22 (n), that they are appropriately provided as inpatient services in accordance 42 CFR 412.3. For Critical Access Hospital the patient may reasonably be expected to be discharged or transferred to a hospital within 96 hours after admission to the Critical Access Hospital. Admitted From: Intrahospital Transfer History of Present Illness: Mr. Avila is a 27 year old male with a history of diabetes, depression, alcohol abuse and presented to the hospital intoxicated when he almost attempted to kill himself. Patient reports that he was having arguments with his as apparently she cheated. He became upset and started drinking alcohol. He had a plan to shoot himself with a gun and the gun went off and at that point we decided not to himself. He presented to the hospital and was admitted to the medical floor for DKA and alcohol intoxication and withdrawal. Stabilized medically and then transferred to one for psychiatric stabilization. He is currently taking Lexapro and Depakote as prescribed by his primary care doctor. PCP recently started the Depakote to help with mood swings. Patient does report severe mood swings on a daily basis. He denies grandiosity, decreased need for sleep or impulsivity. He denies episodes of hypomania. He denies psychosis including auditory or visual hallucinations now or in the past. He does have a history of 1 suicide attempt that occurred also related to her relationship several years ago. He attempted to cut his wrist and was hospitalized for this. Other than that he feels like the Lexapro is working and he states the reason that he was thinking of suicide at this time was because of the alcohol. He now is glad that he did not hurt himself and is looking for to try to work things out with his and kids. He is not aware if the Depakote is helping or not with his moods. He denies chronic issues with sleep but states that he does work third shift which makes it difficult to get regular sleep pattern. Past Med Surg Social Fam HX - Past Medical History Medical history: diabetes, hypertension, other - Past Psychiatric History Psychiatric history: Reports: depression, prior suicide attempt, previous psychiatric hospitalization, other (Alcohol abuse) Past psychiatric history details: One previous psychiatric admission. No psychiatrist. Currently on Depakote and Lexapro per PCP. Family psychiatric history: Yes Family Psychiatric History Details: Family history of depression in sister and grandmother. Family History of Suicide: None - Past Surgical History Surgical History: no surgical history, other - Social History Smoking Status: Current every day smoker Smokeless Tobacco Status: No Alcohol use: occasionally Drug use: none Occupational status: employed Current living situation: Home - Independent Medications & Allergies Insulin LISPRO [Humalog] 0 unit SQ TID PRN 05/06/16 [History] Insulin Glargine,Hum.rec.anlog [Lantus Solostar] 60 unit SQ DAILY 11/21/16 [ History] Lisinopril [Zestril] 5 mg PO DAILY 07/10/17 [History] Divalproex (12 HR) [Depakote (12 HR)] 250 mg PO BID 07/27/17 [History] Escitalopram [Lexapro] 20 mg PO DAILY 07/27/17 [History] 3 Allergy/AdvReac Type Severity Reaction Status Date / Time No Known Allergies Allergy Verified 07/27/17 15:21 Review of Systems Constitutional: Denies: fever, chills, weakness, weight change Eyes: Denies: eye pain, vision change Ears, Nose, Throat: Denies: ear pain, throat pain, dental pain, hearing loss, congestion Cardiovascular: Denies: chest pain, palpitations, dyspnea on exertion Respiratory: Denies: cough, dyspnea, wheezes Gastrointestinal: Denies: abdominal pain, nausea, vomiting, diarrhea, constipation Genitourinary male: Denies: urgency, dysuria, frequency, genital lesions Genitourinary female: Denies: urgency, dysuria, frequency, abnormal menses, dyspareunia Musculoskeletal: Denies: joint swelling, joint pain Integumentary: Denies: rash, lesions, pruritus Neurological: Denies: headache, weakness, numbness, memory loss Psychiatric: Reports: abnormal sleep pattern, irritability, mood swings. Denies : depression, suicidal ideation Endocrine: Denies: fatigue, heat or cold intolerance Hematologic/Lymphatic: Denies: easy bruising, lymphadenopathy Allergic/Immunologic: Denies: urticaria, itchy eyes Mental Status Exam Patient orientation: Yes Person, Yes Time, Yes Place Level of alertness: Alert Patient appearance: Appropriate, Well Groomed Behavior: calm, cooperative Psychomotor activity: Normal Eye contact: Maintains Eye Contact Mood description: Euthymic/stable Affect description: congruent with mood, full range Speech pattern: Normal rate, Normal rhythm, Normal tone Speech volume: Normal Thought process: Intact, Logical, Goal Oriented Thought content: No Suicidal ideation, No Homicidal ideation Perceptual disturbances: No Auditory hallucinations, No Visual hallucinations Attention span: Capable of Focused Attention Memory description: Grossly Intact Patient reliability: Reliable Historian Intelligence estimate: Average Judgment: Limited Insight: Partial Exam - HEENT Head exam IM: Present: atraumatic - Neurological Neurological exam IM: Present: CN II-XII intact - Extremities Extremities exam IM: Present: full ROM Results - Vital Signs Vital signs: Temp Pulse Resp BP 97.5 F L 83 16 140/87 07/29/17 09:00 07/29/17 09:00 07/29/17 09:00 07/29/17 09:00 - Labs Labs: Laboratory Last Values POC Glucose 132 (58-89) H 07/29/17 11:14 Assessment and Plan (1) Adjustment disorder with mixed disturbance of emotions and conduct Current visit: Yes Status: Acute Plan: Admit inpatient for safety and stabilization, Close observation, Suicide Precautions per unit protocol, Encourage participation in unit milieu, Group Therapy, Monitor sleep, Monitor appetite Additional Plan: Patient reports that his medications were working fairly well except for mood swings and irritability until he started drinking. He was upset because his leaving him. He has an alternative plan to stay with his mother on discharge and feels supported by family. Risks, benefits, side effects, alternatives discussed w/pt: Yes Patient agreeable to treatment: Yes Plans for Post Hospital Care: Home Estimated Length of Stay (Days): 3 (2) Major depressive disorder, recurrent, moderate Current visit: Yes Status: Acute Plan: Admit inpatient for safety and stabilization, Close observation, Suicide Precautions per unit protocol, Encourage participation in unit milieu, Group Therapy, Monitor sleep, Monitor appetite Additional Plan: No evidence of bipolar disorder on this exam. By history no evidence of bipolar disorder. Discontinue Depakote and start low dose of Abilify to augment Lexapro. Encourage positive coping strategies. Risks, benefits, side effects, alternatives discussed w/pt: Yes Patient agreeable to treatment: Yes (3) Alcohol abuse Current visit: Yes Status: Acute Plan: Admit inpatient for safety and stabilization Additional Plan: Monitor for alcohol withdrawal. Encouraged patient to discontinue use of alcohol. Risks, benefits, side effects, alternatives discussed w/pt: Yes Patient agreeable to treatment: Yes
[2017-07-29] MEDS: ARIPiprazole 2 MG TABLET PO SCH (13:07)
--- NOTE | 2017-07-29 17:23 | Internal Medicine Consult Note ---
Date of Encounter: 07/29/17 Time of Encounter: 17:00 - Assessment and Plan (1) Diabetes mellitus Current Visit: Yes Status: Acute Assessment and plan: Type 1 diabetes mellitus with hypoglycemia Initial DKA has resolved Reduce Levemir dose to 30 units daily, hold insulin sliding scale insulin for now Continue glucose checks ACHS, continue ADA diet, hypoglycemia protocol Thank you for the consult, will follow with you Qualifiers: Diabetes mellitus type: type 1 Diabetes mellitus complication status: without complication Qualified Code(s): E10.9 - Type 1 diabetes mellitus without complications (2) Hypertension Current Visit: Yes Status: Chronic Assessment and plan: Essential hypertension, controlled, monitor Continue home dose of Lisinopril Qualifiers: Hypertension type: essential hypertension Qualified Code(s): I10 - Essential (primary) hypertension (3) Depression Current Visit: Yes Status: Chronic Assessment and plan: Plan as per psychiatry Qualifiers: Depression Type: major depressive disorder Major depression recurrence: recurrent Active/Remission status: currently active Major depression episode severity: moderate Qualified Code(s): F33.1 - Major depressive disorder, recurrent, moderate (4) Alcohol abuse Current Visit: Yes Status: Chronic Assessment and plan: Monitor for alcohol withdrawal (5) Tobacco abuse Current Visit: Yes Status: Chronic Assessment and plan: Continue nicotine patch Internal Medicine - CN: HPI - Data of Consult Patient: known to practice within the last 3 years Consult date: 07/29/17 Requesting Physician: Sarah Beth Smith MD - Consult Narrative Reason for consult: Hypoglycemia History of present illness: Mr. Avila is a 27 year old male with past medical history hypertension, insulin-dependent diabetes, depression and bipolar disorder. Initially admitted for suicide attempt and diabetic ketoacidosis. Transferred to psych unit for further management. Hospitalist service has been reconsulted for hypoglycemia. Examined in psych unit. Patient is awake and alert. Not in any distress. Able to provide all history. No family members at bedside. Patient denies any complaints at this time. Denies chest pain or headache or dizziness or shortness of breath. No abdominal pain or fever. Tolerating oral diet. RN is at bedside. Patient had blood glucose readings of 33. He is currently on low- dose insulin sliding-scale and also on hypoglycemia protocol. Repeat glucose is now 139. Similar episode occurred yesterday as well. Patient is on 60 units of Levemir daily and he is also on low-dose sliding scale during meals. Patient did not have any symptoms during his hypoglycemic episodes. No other acute events or complaints. We will hold insulin for tonight. Levemir dose will be reduced for tomorrow. HbA1c and C-peptide level pending. Continue ADA diet, glucose checks and hypoglycemia protocol. Continue all other current medications. Thank you for the consult. We will follow with you. Past Med Surg Social Fam HX - Past Medical History Medical history: diabetes, hypertension, other Psychiatric history: depression, prior suicide attempt, previous psychiatric hospitalization, other (Alcohol abuse) - Past Surgical History Surgical History: no surgical history, other - Social History Smoking Status: Current every day smoker Packs per day: 1/2 Smokeless Tobacco Status: No Alcohol use: occasionally Drug use: none - Constitutional Constitutional: no fatigue, no fever(s), no weakness - EENT Eyes: no blurry vision - Cardiovascular Cardiovascular ROS IM: no chest pain, no dyspnea, no dyspnea on exertion, no edema, no irregular heart rhythm, no palpitations, no syncope - Respiratory Respiratory: no cough, no dyspnea, no dyspnea on exertion, no wheezing, no chest congestion - Gastrointestinal Gastrointestinal: no abdominal pain, no cramping, no diarrhea, no hematemesis, no nausea, no vomiting - Musculoskeletal Musculoskeletal ROS IM: no back pain - Neurological Neurological ROS: no abnormal gait, no confusion, no convulsions, no dizziness, no loss of vision, no numbness, no tingling Internal Medicine - CN: Meds Insulin LISPRO [Humalog] 0 unit SQ TID PRN 05/06/16 [History] Insulin Glargine,Hum.rec.anlog [Lantus Solostar] 60 unit SQ DAILY 11/21/16 [ History] Lisinopril [Zestril] 5 mg PO DAILY 07/10/17 [History] Divalproex (12 HR) [Depakote (12 HR)] 250 mg PO BID 07/27/17 [History] Escitalopram [Lexapro] 20 mg PO DAILY 07/27/17 [History] 3 Allergy/AdvReac Type Severity Reaction Status Date / Time No Known Allergies Allergy Verified 07/27/17 15:21 Internal Medicine - CN: Exam - Constitutional Vitals: Temp Pulse Resp BP 97.5 F L 83 16 140/87 07/29/17 09:00 07/29/17 09:00 07/29/17 09:00 07/29/17 09:00 General appearance IM: Present: cooperative, A&O X 3, pleasant, no acute distress, answers questions appropriately - Head Head exam: Present: atraumatic - Eye Eye exam: Present: EOMI - ENT ENT exam: Present: mucous membranes moist - Respiratory Respiratory exam: Present: CTAB. Absent: accessory muscle use, rales, respiratory distress, rhonchi, wheezes, tachypnea - Cardiovascular Cardiovascular exam IM: Present: RRR, +S1, +S2 - GI/Abdominal GI/Abdominal exam IM: Present: soft. Absent: distended, firm, guarding, tenderness - Extremities Exam Extremities exam IM: Present: radial pulses palpable and symmetrical. Absent: calf tenderness, cyanotic, pedal edema - Neurological Exam Neurological exam: Present: alert, oriented X3, no focal deficits. Absent: facial droop, speech deficit Consult Discharge Plan - Plan Referrals: [facility] [Outside] - 09/03/17 2:00 pm (The above appointment is with Sandie Borges, PhD, for mental health counseling services. Please arrive 10 minutes early to complete the check-in process. Please bring your insurance card (or HCAP award letter) and photo ID. If you are unable to keep this appointment, 24 hour business notice of cancellation is expected. If you miss your new patient appointment without providing appropriate notice, you cannot be re-scheduled. The above appointment(s) reflects first availability. You may contact the office regularly to check for cancellations that may allow you to be seen sooner. The [facility] is the 1st [facility] in [place], [place]. Please do not use GPS or mapping apps to locate the office, as they will take you to the wrong location. ) Frederic Peña CNP [Advanced Practice Nurse] - 08/05/17 1:00 pm (The above appointment is with Dr. Peña's nurse practitioner, Audra Craig, for primary health care and medication management services. You will also see Dr. Peña himself on 09/02/2017 at 2:00pm. Please arrive 10 minutes early to complete the check-in process. Please also bring your insurance card (or HCAP award letter), photo ID, and all medications in their original bottles to this appointment. If you are unable to keep this appointment, 24 hour business notice of cancellation is expected. The above appointment(s) reflects first availability. You may contact the office regularly to check for cancellations that may allow you to be seen sooner.)
[2017-07-29 17:40] LABS: Hemoglobin A1C 9.9 %
[2017-07-30] MEDS ORDERED: Divalproex (12 HR) 250 MG TABLET PO SCH (09:00)
[2017-07-30] MEDS ORDERED: Insulin DETEMIR 100 UNIT/ML X5UNITS SQ SCH (09:00)
[2017-07-30] MEDS: ARIPiprazole 2 MG TABLET PO SCH (09:01)
[2017-07-30 09:04] VITALS: BP 119/61
--- NOTE | 2017-07-30 11:26 | Discharge Summary ---
Date of Encounter: 07/30/17 Time of Encounter: 11:20 Diagnosis - Discharge Diagnosis (1) Adjustment disorder with mixed disturbance of emotions and conduct Priority: Primary Status: Acute (2) Major depressive disorder, recurrent, moderate Priority: Secondary Status: Acute (3) Alcohol abuse Priority: Secondary Status: Chronic Medications - Discharge Medications Prescriptions: ARIPiprazole [Abilify] 2 mg PO DAILY #30 tablet Escitalopram [Lexapro] 20 mg PO DAILY #30 tablet Insulin LISPRO [HumaLOG] 0 units SQ HS #1 vial Insulin LISPRO [HumaLOG] 0 units SQ TIDAC #1 vial ARIPiprazole [Abilify] 2 mg PO DAILY #30 tablet 07/30/17 [Rx] Escitalopram [Lexapro] 20 mg PO DAILY #30 tablet 07/30/17 [Rx] Insulin DETEMIR [Levemir] 30 unit SQ DAILY [id number] 07/30/17 [Rx] Insulin LISPRO [HumaLOG] 0 units SQ HS #1 vial 07/30/17 [Rx] Insulin LISPRO [HumaLOG] 0 units SQ TIDAC #1 vial 07/30/17 [Rx] 3 Allergy/AdvReac Type Severity Reaction Status Date / Time No Known Allergies Allergy Verified 07/27/17 15:21 Results Procedures and tests throughout hospitalization: Completed Lab Orders Category Date Time Status Hgb A1C Routine Lab 07/29/17 17:17 Completed Provider Date of admission: 07/28/17 14:25 Primary care physician: PCP NONE Consults: 07/29/17 16:08 Consult to Hospitalist [CONS] Stat Consulting Provider: Hospitalist Vannesa Reason for Consult: Pt came from medical floor on 07/28/17. Pt's blood gluscose dropped yesterday to 43 and is currently 33. Please see pt STAT Call Completed: Yes Discharging clinician: Sarah Beth Smith Assessment and Plan - Patient/Caregiver Discharge Instructions Activity: resume usual activities as tolerated Diet: regular diet - Follow up Plan Follow up with: [facility] [Outside] - 09/03/17 2:00 pm (The above appointment is with Sandie Borges, PhD, for mental health counseling services. Please arrive 10 minutes early to complete the check-in process. Please bring your insurance card (or HCAP award letter) and photo ID. If you are unable to keep this appointment, 24 hour business notice of cancellation is expected. If you miss your new patient appointment without providing appropriate notice, you cannot be re-scheduled. The above appointment(s) reflects first availability. You may contact the office regularly to check for cancellations that may allow you to be seen sooner. The [facility] is the 1st building behind [facility] in [place], [place]. Please do not use GPS or mapping apps to locate the office, as they will take you to the wrong location. ) Frederic Peña CNP [Advanced Practice Nurse] - 08/05/17 1:00 pm (The above appointment is with Dr. Peña's nurse practitioner, Audra Craig, for primary health care and medication management services. You will also see Dr. Peña himself on 09/02/2017 at 2:00pm. Please arrive 10 minutes early to complete the check-in process. Please also bring your insurance card (or HCAP award letter), photo ID, and all medications in their original bottles to this appointment. If you are unable to keep this appointment, 24 hour business notice of cancellation is expected. The above appointment(s) reflects first availability. You may contact the office regularly to check for cancellations that may allow you to be seen sooner.) Functional capacity at discharge: independent ambulation Overall status at discharge: Stable Disposition: Home, Self-Care Hospital Course Hospital course: Mr. Avila is a 27 year old male who presented to the hospital after nearly attempting suicide via gunshot. Patient was admitted to the medical floor initially because diabetic ketoacidosis. He was medically stabilized and transitioned to psychiatric services for further stabilization. Patient was incorporated into the unit milieu and offer group and individual as well as recreational therapy. He is also offered psychoeducational materials and supportive therapy. He was placed on suicide precautions and close observation. Patient continued to deny suicidal ideations on arrival to the hospital. He states he knows he made a mistake in the regrets his decision. Patient was having stress related to relationship problems. recently cheated on him and they have had chronic issues with relationship in the past. Patient was restarted on Lexapro which she felt was helpful for his depression. He was also on Depakote provided by his primary care provider. This was discontinued and patient was started on Abilify 2 mg by mouth daily. Patient tolerated the medication change well. He was cooperative and pleasant with peers and on the unit. Patient was cooperative with coming up with a discharge plan. Patient will be staying with his mom. The patient had all of his been secured by family and will not be available to him. He is agreeable to continuing outpatient medications as well as counseling. He is discharged in stable condition - Time Spent with Patient Total time spent providing and/or coordinating discharge services: Greater than 30 minutes Quality - Multiple Antipsychotics Patient discharged on 2 or more antipsychotic medications: No Procedures - Procedures Procedures: Medication Management, Crisis Stabilization, Supportive Therapy, Group Therapy, Psychoeducational Therapy Mental Status Exam - Mental Status Exam Patient orientation: Yes Person, Yes Time, Yes Place Level of alertness: Alert Patient appearance: Appropriate, Well Groomed Behavior: calm, cooperative Psychomotor activity: Normal Eye contact: Maintains Eye Contact Mood description: Euthymic/stable Affect description: congruent with mood, full range Speech pattern: Normal rate, Normal rhythm, Normal tone Speech Volume: Normal Thought process: Linear, Goal Oriented Thought Content: No Suicidal ideation, No Homicidal ideation, No Overt delusions Perceptual Disturbances: No Auditory hallucinations, No Visual hallucinations Judgment: Limited Insight: Partial
[2017-07-30] MEDS ORDERED: *HR* Dextrose 50 % in Water (Syg) 50 ML SYRINGE IVP PRN (11:40)
[2017-07-30] MEDS ORDERED: D5% in Water 1,000 ML IVC PRN (11:40)
[2017-07-30] MEDS ORDERED: Dextrose Gel 15 GM PO PRN ×2 (11:40)
--- NOTE | 2017-07-30 12:03 | Internal Med Progress Note ---
Date of Encounter: 07/30/17 Time of Encounter: 11:48 - Assessment and plan (1) Diabetes mellitus Current Visit: Yes Status: Acute Assessment and plan: Hypoglycemia resolved noted to be hyperglycemic this morning, started on sliding scale insulin coverage after discharge, pt to continue Lantus 30units and monitor blood glucose closely , if remains hyperglycemic with BG>180, he is to resume initial home dose of lantus 60units qd pt reports of using sliding scale insulin coverage at home-continue after discharge Pt clinically asymptomatic will sign off at this time outpatient follow up with primary care physician recommended within five days after discharge Qualifiers: Diabetes mellitus type: type 1 Diabetes mellitus complication status: without complication Qualified Code(s): E10.9 - Type 1 diabetes mellitus without complications (2) Depression Current Visit: Yes Status: Chronic Assessment and plan: management as per psychiatry Qualifiers: Depression Type: major depressive disorder Major depression recurrence: recurrent Active/Remission status: currently active Major depression episode severity: moderate Qualified Code(s): F33.1 - Major depressive disorder, recurrent, moderate (3) Hypertension Current Visit: Yes Status: Chronic Assessment and plan: BP within acceptable range continue home meds Qualifiers: Hypertension type: essential hypertension Qualified Code(s): I10 - Essential (primary) hypertension (4) Tobacco abuse Current Visit: Yes Status: Chronic - Subjective Interval history: Patient seen and examined. Denies any discomfort.Hypoglycemia resolved and noted to be hyperglycemic Restarted sliding scale insulin algorithm Pt reported of eating a lot more at home than he has been at the hospital Pt educated about insulin dosing. He is to continue home dose of lantus 30units qdaily and increase dose if his fasting glucose is greater than 180 Pt states he uses a sliding scale in addition to the lantus at home. - Constitutional Vitals: Temp Pulse Resp BP 98.7 F 76 20 119/61 07/30/17 09:00 07/30/17 09:00 07/30/17 09:00 07/30/17 09:00 General appearance: Present: cooperative, A&O X 3, pleasant, no acute distress, answers questions appropriately - Head Head exam: Present: atraumatic, normocephalic - Eye Eye exam: Present: conjuntiva pink, sclera anicteric - Respiratory Respiratory exam: Present: CTAB. Absent: accessory muscle use, rales, rhonchi, wheezes - Cardiovascular Cardiovascular exam: Present: RRR, +S1, +S2. Absent: diastolic murmur, gallop, rubs, systolic murmur - GI/Abdominal GI/Abdominal exam: Present: normal bowel sounds, soft, no peritoneal signs. Absent: distended, tenderness - Extremities Exam Extremities exam: Present: warm, radial pulses palpable and symmetrical. Absent : calf tenderness, cyanotic, pedal edema - Neurological Exam Neurological exam: Present: alert, oriented X3 - Psychiatric Psychiatric exam: Present: normal affect, normal mood. Absent: suicidal ideation - VTE Reasons for not Prescribing Prophylaxis: Treatment not Indicated - Low risk for VTE Consult Discharge Plan - Plan Referrals: [facility] [Outside] - 09/03/17 2:00 pm (The above appointment is with Sandie Borges, PhD, for mental health counseling services. Please arrive 10 minutes early to complete the check-in process. Please bring your insurance card (or HCAP award letter) and photo ID. If you are unable to keep this appointment, 24 hour business notice of cancellation is expected. If you miss your new patient appointment without providing appropriate notice, you cannot be re-scheduled. The above appointment(s) reflects first availability. You may contact the office regularly to check for cancellations that may allow you to be seen sooner. The [facility] is the 1st building behind [facility] in [place], [place]. Please do not use GPS or mapping apps to locate the office, as they will take you to the wrong location. ) Frederic Peña CNP [Advanced Practice Nurse] - 08/05/17 1:00 pm (The above appointment is with Dr. Peña's nurse practitioner, Audra Craig, for primary health care and medication management services. You will also see Dr. Peña himself on 09/02/2017 at 2:00pm. Please arrive 10 minutes early to complete the check-in process. Please also bring your insurance card (or HCAP award letter), photo ID, and all medications in their original bottles to this appointment. If you are unable to keep this appointment, 24 hour business notice of cancellation is expected. The above appointment(s) reflects first availability. You may contact the office regularly to check for cancellations that may allow you to be seen sooner.)
[2017-07-30] MEDS ORDERED: Insulin LISPRO 300 UNITS/3 ML VIAL SQ SCH ×3 (12:25→21:00)
== END 2017-07-30 13:14 | disposition home or self-care (01) | DRG 896 ==
LOC: 1ANU 14:25
PROVIDERS: ADMIT Student in an Organized Health Care Education/Training Program; ATTEND Student in an Organized Health Care Education/Training Program